=== PATIENT | female | born 1980 | race Caucasian/White ===

== ENCOUNTER 2020-07-19 09:57 | Emergency (ER) | payer SELFPAY ==
[2020-07-19 10:08] VITALS: BP 114/60; PULSE 88; RESP 16; TEMP 36.3; O2SAT 100
--- NOTE | 2020-07-19 10:08 | ED.FEMALEGU ---
HPI - Female Genitourinary General Chief complaint: Urogenital-Female Stated complaint: Pos UTI Time Seen by Provider: 07/19/20 10:17 Source: patient and RN notes reviewed Mode of arrival: ambulatory Limitations: no limitations History of Present Illness HPI Narrative: 40-year-old female presents with concern for 2-day history of dark foul-smelling urine, feeling of not fully emptying her bladder. She denies fever, abdominal pain, back pain, nausea, vomiting. Denies abnormal vaginal discharge, irregular menstrual periods. MD elicited complaint: UTI Related Data Allergies Allergy/AdvReac Type Severity Reaction Status Date / Time No Known Allergies Allergy Verified 12/11/11 10:27 NFA Allergy Uncoded 12/11/11 10:26 Review of Systems Review of Systems: Narrative: CONSTITUTIONAL: Denies malaise, chills, sweats, or fever. CARDIOVASCULAR: Denies chest pain, palpitations, or edema. RESPIRATORY: Denies cough or dyspnea. GASTROINTESTINAL: Denies abdominal pain, nausea, vomiting, diarrhea GENITOURINARY: Denies dysuria or hematuria. Reports dark, foul-smelling urine, feeling of not emptying her bladder MUSCULOSKELETAL: Denies back pain or myalgia. All systems reviewed & are unremarkable except as noted in HPI and below PMFSH Comments At time of signature, agree with nursing past medical, surgical, social and family history. There is no relevant family history pertinent to the presenting complaint Exam Narrative: Exam Narrative: GENERAL: Well-appearing, well-nourished, and in no acute distress. HEAD: Normocephalic. EYES: PERRLA, conjunctivae clear. NECK: Supple. No lymphadenopathy CHEST: Clear to auscultation. No respiratory distress. HEART: Regular rate and rhythm. ABDOMEN: Soft, nontender upon palpation, nondistended, normal active bowel sounds, no palpable or pulsatile masses, no guarding. No CVA tenderness SKIN: Warm, dry, no rash. NEURO: Alert and oriented x3. PSYCH: Normal mood and affect Course Course Emergency Course: Patient is aware of diagnosis, understands and agrees to treatment plan. Anticipatory guidance given. Patient agrees to follow-up as directed and is aware of reasons to seek care at the emergency department. Portions of this record may have been created with voice recognition software Vital Signs Vital signs: Vital Signs Temperature 97.4 F L 07/19/20 10:08 Pulse Rate 88 11/12/20 10:08 Respiratory Rate 16 07/19/20 10:08 Blood Pressure 114/60 07/19/20 10:08 Pulse Oximetry 100 07/19/20 10:08 Temperature 97.4 F L 07/19/20 10:08 Pulse Rate 88 07/19/20 10:08 Respiratory Rate 16 07/19/20 10:08 Blood Pressure 114/60 07/19/20 10:08 Pulse Oximetry 100 07/19/20 10:08 Reviewed. MDM - Female Genitourinary MDM Narrative Medical decision making narrative: Exam findings and UA show no acute concerns or changes; patient is non-toxic appearing and is in no distress. Patient is appropriate for outpatient treatment and follow-up. Lab Data Labs: Urine Glucose Negative Reference Range: Negative Urine Bilirubin Negative Reference Range: Negative Urine Ketone Trace Reference Range: Negative Urine Specific [place] 1.030 Reference Range:1.001-1.035 Urine Blood 3+ Reference Range: Negative * * Urine pH 5.0 Reference Range: 5.0-9.0 Urine Protein 1+ Reference Range: Negative Urine Urobilinogen 0.2
== END 2020-07-19 10:30 | disposition home or self-care (01) ==
PROVIDERS: Emergency Provider Nurse Practitioner; PCP Family Medicine Sports Medicine
DX: N39.0 Urinary tract infection, site not specified (principal)
CPT/HCPCS: 81003; 87077; 87086; 87088; 87186; 99213; G0463

== ENCOUNTER 2021-05-08 10:21 | Emergency (ER) | payer OTHER, SELFPAY ==
--- NOTE | ~2021-05-08 | US_ITS ---
EXAMINATION: US pelvic complete DATE: 05/08/2021 13:05 INDICATION: Left pelvic pain TECHNIQUE: Multiple transabdominal and endovaginal sonographic images of the pelvis were obtained. COMPARISON: None. FINDINGS: The uterus measures 7.6 x 4.2 x 5.3 cm. The endometrial complex measures 4 mm in thickness. Linear e chogenic IUD within the endometrial canal. The right ovary measures 2.8 x 1.1 x 1.3 cm. The left ovar y measures 2.9 x 2.3 x 2.7 cm. 2.9 x 1.7 x 1.4 cm anechoic cyst/follicle in the left ovary. There is an additional 1.9 cm complex cyst with peripheral hypoechoic region without definitive internal flow on color Doppler. There is normal vascular flow in the ovaries. There is no free fluid in the pelvis. IMPRESSION: 1. IUD within the endometrial canal. 2. Indeterminate 1.9 cm complex left ovarian cyst with differential including statistically most like ly hemorrhagic cyst or corpus luteum cyst or less likely neoplasm which could be either benign or mal ignant. Would recommend 6-12 week follow-up pelvic ultrasound. Reviewed, dictated and finalized at location A. IMPRESSION: 1. IUD within the endometrial canal. 2. Indeterminate 1.9 cm complex left ovarian cyst with differential including s tatistically most likely hemorrhagic cyst or corpus luteum cyst or less likely neoplasm which could be either benign or malignant. Would recommend 6-12 week f ollow-up pelvic ultrasound.
[2021-05-08 10:28] VITALS: BP 111/61; PULSE 79; RESP 16; TEMP 37; O2SAT 100
[2021-05-08 10:56] LABS: Basophils Percent Auto 0.5 % (0.2-1.2); Eosinophils Absolute Auto 0.2 K/mm3 (0-0.3); Eosinophils Percent Auto 2.7 % (0-4.4); Hematocrit 38.6 % (37.0-47.0); Hemoglobin 12.7 g/dL (12.0-15.0); Immature Granulocyte Absolute 0.01 K/mm3 (0.00-0.031); Immature Granulocyte Percent A 0.2 % (0-0.5); Lymphocytes Absolute Auto 2.44 K/mm3 (0.9-3.2); Lymphocytes Percent Auto 38.1 % (18.3-44.2); Mean Corpuscular HGB Conc 32.9 g/dl (32-36); Mean Corpuscular Hemoglobin 32.5 pg (26-34); Mean Corpuscular Volume 98.7 fl (80-100); Mean Platelet Volume 12.1 fl (7.4-10.4); Monocytes Absolute Auto 0.7 K/mm3 (0.1-0.6); Monocytes Percent Auto 10.2 % (2.6-8.5); Neutrophils Absolute Auto 3.1 K/mm3 (1.3-6.7); Neutrophils Percent Auto 48.3 % (45.5-73.1); Platelet Count Result 213 k/mm3 (150-375); Red Blood Count 3.91 M/mm3 (4.2-5.4); Red Cell Distribution Width 12.5 % (11.5-14.5); White Blood Count 6.4 K/mm3 (4.5-10.0)
[2021-05-08 11:09] LABS: Add Urine Microscopic? YES; Appearance Urine Clear (Clear); Bacteria Urine Trace /hpf; Bilirubin Urine Negative (Negative); Blood Urine 1+ (Negative); Color Urine Yellow (Yellow); Glucose Urine UA Negative (Negative); Ketones Urine Negative (Negative); Leukocyte Esterase Ur Negative LEU/UL (Negative); Mucus Urine Few /lpf; Nitrate Urine Negative (Negative); Protein Urine 1+ mg/dL (Negative); Specific Grav Ur 1.019 (1.001-1.035); Squamous Epithelial Cell Urine Few /hpf (Few); WBC Urine 0-3 /hpf
[2021-05-08 11:12] LABS: Alanine Aminotransferase 12 U/L (4-35); Albumin Level 4.3 g/dL (3.5-5.1); Alkaline Phosphatase 49 U/L (38-126); Anion Gap 12 mmol/L (8-16); Aspartate Amino Transferase 22 U/L (14-36); Bilirubin,Total 0.4 mg/dL (0.2-1.3); Blood Urea Nitrogen 7 mg/dL (7-17); Calcium 8.8 mg/dL (8.4-10.2); Carbon Dioxide 23 mmol/L (22-30); Chloride 105 mmol/L (98-107); Estimated CRCL calculation 94 ml/min; Estimated Glomerular Filt Rate > 60; Glucose 85 mg/dL (65-110); Lipase 124 U/L (23-300); Potassium 3.7 mmol/L (3.4-5.0); Sodium 140 mmol/L (137-145)
[2021-05-08 11:15] VITALS: BP 101/63; PULSE 55; RESP 18; O2SAT 99
--- NOTE | 2021-05-08 12:44 | ED.ABDPAIN ---
HPI - Abdominal Pain General Chief Complaint: Abdominal Pain Stated Complaint: LLQ abd pain x 3 days Time Seen by Provider: 05/08/21 12:27 Source: patient and RN notes reviewed Mode of arrival: ambulatory Limitations: no limitations History of Present Illness HPI narrative: This is a 41 year old female who presents for evaluation of left lower abdominal pain. She states she had pain last week but it resolved after 1 day. Her pain returned 3 days ago and it has remained daily. She also reports pain is worsening and it is radiating to her lower back . She does not know of any exacerbating factors. She has been taking ibuprofen and Tylenol without relief of her pain. She denies associated nausea, vomiting, fever, urinary symptoms, diarrhea or constipation. She rates pain 8/10 currently. Related Data Allergies Allergy/AdvReac Type Severity Reaction Status Date / Time No Known Allergies Allergy Verified 12/11/11 10:27 NFA Allergy Uncoded 12/11/11 10:26 Review of Systems Review of Systems: All systems reviewed & are unremarkable except as noted in HPI and below PMFSH Past Medical History Medical History (Updated 05/08/21 @ 13:40 by Alejandra Jones MD) Patient denies medical problems Surgical History Surgical History (Updated 05/08/21 @ 12:56 by Alejandra Jones MD) H/O laparoscopy Social History Social History (Updated 05/08/21 @ 12:56 by Alejandra Jones MD) Smoking status: Never smoker Alcohol intake: never Substance use: never Exam Const: General: no acute distress and alert Nutritional Appearance: thin Orientation/consciousness: patient oriented x3 Eyes: EOM: EOMs intact bilaterally Resp: Effort & Inspection: normal respiratory effort and no retractions Auscultation: clear to auscultation bilaterally Cardio: Rate: regular rate Rhythm: regular rhythm Heart sounds: no murmurs GI: GI Palp: Yes Soft to palpation, Yes Tenderness to palpation present (GI) (LLQ), No Guarding due to palpation present (GI) and No Rigid due to palpation Auscultation: normal bowel sounds Neuro: General: patient oriented x3, moves all extremities and CN's II-XI intact bilaterally Psych: Mental Status: mental status grossly normal Affect: normal affect Course Reevaluation(s) Reevaluation #1: I Discussed with patient that US shows ovarian cyst as cause of her pain and she will need to follow up with Dr Jesús Seals. She is in no acute distress or pain. Date: 05/08/21 Time: 13:39 Consultations Consultation #1: I Discussed US with DR. Seals who is patient's OBGYN about her US. She agrees I can prescribe some tramadol but nothing stronger. She will follow up with patient. Date: 05/08/21 Time: 13:38 Vital Signs Vital signs: Vital Signs Temperature 98.6 F 05/08/21 10:28 Pulse Rate 79 05/08/21 10:28 Respiratory Rate 16 05/08/21 10:28 Blood Pressure 111/61 05/08/21 10:28 Pulse Oximetry 100 05/08/21 10:28 Temperature 98.6 F 05/08/21 10:28 Pulse Rate 50 L 05/08/21 13:52 Respiratory Rate 18 05/08/21 13:52 Blood Pressure 98/72 L 05/08/21 13:52 Pulse Oximetry 100 05/08/21 13:52 MDM - Abdominal Pain Lab Data Attestation: I reviewed the patient's lab results. Result diagrams: 05/08/21 10:37 05/08/21 10:37 Labs: Lab Results 05/08/21 05/08/21 05/08/21 Range/Units 10:37 10:37 10:37 WBC 6.4 (4.5-10.0) K/mm3 RBC 3.91 L (4.2-5.4) M/mm3 Hgb 12.7 (12.0-15.0) g/dL Hct 38.6 (37.0-47.0) % MCV 98.7 (80-100) fl MCH 32.5 (26-34) pg MCHC 32.9 (32-36) g/dl RDW 12.5 (11.5-14.5) % Plt Count 213 (150-375) k/mm3 MPV 12.1 H (7.4-10.4) fl Immature Gran % (Auto) 0.2 (0-0.5) % Neut % (Auto) 48.3 (45.5-73.1) % Lymph % (Auto) 38.1 (18.3-44.2) % Payne % (Auto) 10.2 H (2.6-8.5) % Eos % (Auto) 2.7 (0-4.4) % Baso % (Auto) 0.5 (0.2-1.2) % Lymph # (Auto) 2.44 (0.9-3.2)
[2021-05-08] MEDS: KETOROLAC 30 MG/ML VIAL (*BKC) IV PUSH (13:04)
[2021-05-08 13:52] VITALS: BP 98/72; PULSE 50; RESP 18; O2SAT 100
== END 2021-05-08 13:53 | disposition home or self-care (01) ==
PROVIDERS: Emergency Medicine; Emergency Provider General Practice; PCP Family Medicine Sports Medicine
DX: N83.292 Other ovarian cyst, left side (principal)
CPT/HCPCS: 36415; 76856; 80053; 81001; 81025; 83690; 85025; 96374; 99284; J1885

== ENCOUNTER 2021-12-23 17:18 | Emergency (ER) | payer OTHER, SELFPAY ==
--- NOTE | ~2021-12-23 | XR_ITS ---
EXAM: XR_CERV2-3V_CR HISTORY: FALL,PAIN MAINLY LT SIDE OF NECK COMPARISON: None available FINDINGS: Craniocervical association and atlantoaxial joint are normal. No prevertebral soft tissue swelling. Reversal of the normal cervical lordosis. Moderate disc space narrowing at C5-6. Normal fac ets and posterior elements. IMPRESSION: No acute fracture or traumatic malalignment detected in the cervical spine. Reviewed, dictated and finalized at location K.
--- NOTE | ~2021-12-23 | XR_ITS ---
EXAM: XR lumbar spine 2-3V HISTORY: FALL,PAIN ACROSS LOW BACK COMPARISON: None available FINDINGS: 5 nonrib-bearing lumbar-type vertebral bodies. Pedicles intact. Normal vertebral body alig nment. Vertebral body heights preserved. Disc spaces maintained. Normal facets and posterior elements . IUD. IMPRESSION: No acute fracture or traumatic malalignment detected in the lumbar spine. Reviewed, dictated and finalized at location K.
[2021-12-23 17:38] VITALS: BP 95/67; PULSE 63; RESP 18; TEMP 36.9; O2SAT 100
[2021-12-23 19:02] VITALS: BP 102/80; PULSE 62; RESP 18; TEMP 36.4; O2SAT 99
--- NOTE | 2021-12-23 19:07 | ED.GENADULT ---
HPI - General Adult General Chief complaint: Unspecified Stated complaint: Neck/Back Pain Time Seen by Provider: 12/23/21 18:48 History of Present Illness HPI narrative: 41-year-old female presents to the emergency room with complaints of neck and lower back pain. Patient states that earlier today at work, she was trying to catch a falling tray of mail. She states she attempted to catch the mail she twisted her back and causing pain. Injury occurred around 9:00 this morning. Patient was able to work her entire shift following the injury. Related Data Allergies Allergy/AdvReac Type Severity Reaction Status Date / Time No Known Allergies Allergy Verified 12/23/21 17:41 Review of Systems Review of Systems: CONSTITUTIONAL: Denies fever, chills, or sweats. EYES: Denies visual changes, redness, or discharge. ENT: Denies rhinorrhea, congestion, sore throat, or otalgia. CARDIOVASCULAR: Denies chest pain, palpitations, or edema. RESPIRATORY: Denies cough or dyspnea. GASTROINTESTINAL: Denies abdominal pain, nausea, vomiting, or diarrhea. GENITOURINARY: Denies dysuria or hematuria. SKIN: Denies rash or itching. MUSCULOSKELETAL: Reports neck and back pain NEUROLOGIC: Denies headache, numbness, dizziness, or weakness. PSYCHIATRIC: Denies anxiety or depression. PMFSH Past Medical History Medical History Patient denies medical problems Surgical History Surgical History H/O laparoscopy Social History Social History Smoking status: Never smoker Alcohol intake: never Substance use: never Exam Narrative: GENERAL: Well-appearing, well-nourished, and in no acute distress. HEAD: Normocephalic, atraumatic. EYES: PERRLA and EOMI. CHEST: Clear to auscultation. No respiratory distress. No wheezes rales or rhonchi HEART: Regular rate and rhythm. No murmur heard. Normal peripheral pulses. ABDOMEN: Soft, nontender, nondistended, normal active bowel sounds. EXTREMITIES: Normal range of motion. No edema. BACK: Cervical spine: Tenderness to the left trapezius muscle, full range of motion rotation and bend. No midline tenderness, no bony abnormality, no step-offs. Lumbar spine: Tenderness to lumbar fascia, range of motion with rotation and bend. No midline tenderness no bony abnormality, no step-offs. Neurovascular is intact distally SKIN: Warm, dry, no rash. NEURO: No focal deficits. Alert and oriented x3. PSYCH: Normal mood and affect. Course Course Emergency Course: 1929: Patient verbalized frustration that she was not evaluated thoroughly by the provider. Patient states that because she heard a pop in her neck, she must of fractured spinal bone. Examination demonstrates that she had muscle spasms in her left trapezius muscle. Images were then ordered, of her neck and lower spine. X-ray showed no acute bony abnormality, or no muscle spasms. Was unable to discuss findings with patient because she left without being told of the results. Vital Signs Vital signs: Vital Signs Temperature 36.9 C 12/23/21 17:38 Pulse Rate 63 12/23/21 17:38 Respiratory Rate 18 12/23/21 17:38 Blood Pressure 95/67 L 12/23/21 17:38 Pulse Oximetry 100 12/23/21 17:38 Temperature 36.5 C 12/23/21 20:45 Pulse Rate 59 L 12/23/21 20:45 Respiratory Rate 16 12/23/21 20:45 Blood Pressure 117/73 12/23/21 20:45 Pulse Oximetry 99 12/23/21 20:45 Medical Decision Making Vital Signs Vital Signs: Vital Signs Temperature 36.9 C 12/23/21 17:38 Pulse Rate 63 12/23/21 17:38 Respiratory Rate 18 12/23/21 17:38 Blood Pressure 95/67 L 12/23/21 17:38 Pulse Oximetry 100 12/23/21 17:38 Temperature 36.5 C 12/23/21 20:45 Pulse Rate 59 L 12/23/21 20:45 Respiratory Rate 16 12/23/21 20:45 Blood Pressure 117/73 12/23/21 20:45 Pulse Oximetry
--- NOTE | 2021-12-23 19:57 | PC.NURSE ---
Went in with discharge paperwork. Pt unhappy, states how does he know its a muscle . Spoke with MARISSA García. Ricky to order xrays at patient request. No discharge at this time. Updated patient.
[2021-12-23 20:45] VITALS: BP 117/73; PULSE 59; RESP 16; TEMP 36.5; O2SAT 99
== END 2021-12-23 20:45 | disposition left against medical advice (07) ==
LOC: ANHED 19:37
PROVIDERS: Emergency Provider Nurse Practitioner Family; PCP Family Medicine Sports Medicine
DX: S16.1XXA Strain of muscle, fascia and tendon at neck level, initial encounter (principal); S39.012A Strain of muscle, fascia and tendon of lower back, initial encounter; X50.9XXA Other and unspecified overexertion or strenuous movements or postures, initial encounter
CPT/HCPCS: 72040; 72100; 99284

== ENCOUNTER 2022-12-01 08:22 | Emergency (ER) | payer OTHER, MEDICAID, SELFPAY ==
--- NOTE | 2022-12-01 08:23 | ED.URI ---
HPI - URI/Sore Throat General Chief Complaint: Upper Respiratory Infection Stated Complaint: sore throat Time Seen by Provider: 12/01/22 08:23 Source: patient and RN notes reviewed History of Present Illness HPI Narrative: Patient is a 42-year-old female who presents to urgent care with complaints of sore throat, intermittent headaches and right ear pain. Patient states it started 1 week ago and she has been taking ibuprofen allergy medication without relief. Denies any fever, nausea or vomiting. Denies any ill contacts. No other acute complaints. No acute distress noted. Patient aware of the plan of care. Some parts of this dictation were generated by voice recognition software and may contain typographical and/or grammatical inaccuracies. Related Data Home Medications Medication Instructions Recorded Confirmed gabapentin 100 mg capsule 100 mg PO TID 12/01/22 12/01/22 sertraline 100 mg tablet 150 mg PO DAILY 12/01/22 12/01/22 Allergies Allergy/AdvReac Type Severity Reaction Status Date / Time No Known Allergies Allergy Verified 12/23/21 17:41 Review of Systems Review of Systems: CONSTITUTIONAL: Denies fever, chills, or sweats. EYES: Denies visual changes, redness, or discharge. ENT: Denies rhinorrhea, congestion. Reports of sore throat right otalgia CARDIOVASCULAR: Denies chest pain, palpitations, or edema. RESPIRATORY: Denies cough or dyspnea. GASTROINTESTINAL: Denies abdominal pain, nausea, vomiting, or diarrhea. GENITOURINARY: Denies dysuria or hematuria. SKIN: Denies rash or itching. MUSCULOSKELETAL: Denies back pain, joint pain, or myalgia. NEUROLOGIC: Reports of headaches All other systems reviewed are negative, except as documented in HPI. [facility] Past Medical History Medical History Patient denies medical problems Surgical History Surgical History H/O laparoscopy Social History Social History Smoking status: Never smoker Alcohol intake: never Substance use: never Comments At the time of my signature, I reviewed and agree with the nursing past medical, surgical, social, and family history. There is no relevant family history pertinent to the patient complaint. Exam Narrative: GENERAL: This is a well-nourished, well-developed patient, in no apparent distress. HEAD: normocephalic, atraumatic. EYES: PERRL. Sclera clear/white. Vision is grossly intact. EARS: External ears normal, auditory canals clear and without drainage, TMs normal without perforation. Hearing grossly intact. NOSE: External nose normal with no obvious nasal discharge, nares without redness, no rhinorrhea. THROAT: Mucous membranes moist, posterior pharynx clear. Mild postnasal drainage NECK: Neck supple, non-tender without lymphadenopathy RESPIRATORY: Clear to auscultation. Breath sounds equal bilaterally. No wheezes, rales, or rhonchi. SKIN: warm, intact with no suspicious lesions or rash, good texture and turgor. NEURO: awake, alert, and oriented to person, place and time. There were no obvious focal neurologic abnormalities. EXTREMITIES: No clubbing, cyanosis, or edema. Course Course Level of Care: Express Care Visit Vital Signs Vital signs: Vital Signs Temperature 98.5 F 12/01/22 08:43 Pulse Rate 88 12/01/22 08:43 Respiratory Rate 16 12/01/22 08:43 Blood Pressure 104/73 12/01/22 08:43 Pulse Oximetry 100 12/01/22 08:43 Temperature 98.5 F 12/01/22 08:43 Pulse Rate 88 12/01/22 08:43 Respiratory Rate 16 12/01/22 08:43 Blood Pressure 104/73 12/01/22 08:43 Pulse Oximetry 100 12/01/22 08:43 Reviewed MDM - URI/Sore Throat MDM Narrative Medical decision making narrative: Reviewed lab results with the patient. She is aware that strep swab was negative. Educated patient on culture we will call within 72 hours if herminio
[2022-12-01 08:43] VITALS: BP 104/73; PULSE 88; RESP 16; TEMP 36.9; O2SAT 100
== END 2022-12-01 09:07 | disposition home or self-care (01) ==
PROVIDERS: Emergency Provider Nurse Practitioner Family; PCP Family Medicine Sports Medicine
DX: H92.01 Otalgia, right ear (principal)
CPT/HCPCS: 87081; 87880; 99213; G0463

== ENCOUNTER 2023-10-06 08:03 | Emergency (ER) | payer BC, SELFPAY ==
[2023-10-06] VITALS (7 sets, daily range): BP systolic 105–148; BP diastolic 61–85; PULSE 50–112; RESP 13–16; O2SAT 99–100
--- NOTE | ~2023-10-06 | CT_ITS ---
EXAMINATION: CT abdomen pelvis w con DATE: 10/06/2023 11:07 INDICATION: Right upper quadrant abdominal pain. TECHNIQUE: Computed tomography (CT) of the abdomen and pelvis was performed with 100 mL Omnipaque 350 intravenous contrast. Automated exposure control and iterative reconstruction technique were employe d. The dose-length product was 340.12 mGy-cm. COMPARISON: CT abdomen 06/11/2004 FINDINGS: The visualized portions of the lung bases demonstrate mild atelectasis. No pleural effusion . The heart size is normal. No pericardial effusion. There is mild pectus excavatum. There are cysts in the liver measuring up to 5 mm. The gallbladder, spleen, pancreas, adrenal glands, and right kidne y are normal. There are cysts in left kidney measuring up to 4 mm. There is an intrauterine device in expected position. The appendix is normal. There are no pathologically enlarged lymph nodes. There i s no free intraperitoneal fluid. There is mild lumbar spondylosis. IMPRESSION: 1. No etiology for the patient's symptoms. Reviewed, dictated and finalized at location A. L SAMPLER
--- NOTE | 2023-10-06 08:25 | ED.ABDPAIN ---
HPI - Abdominal Pain General Chief Complaint: Abdominal Pain Stated Complaint: difficulty swallowing/epigastric burning Time Seen by Provider: 10/06/23 08:19 History of Present Illness HPI narrative: 43-year-old female presenting to the emergency department for evaluation of epigastric pain and epigastric burning. Patient states over the course of the last 2 weeks she has had some difficulty with swallowing but does continue to swallow food and secretions without difficulty. Patient reports that she does has to focus on the swelling. Patient also has some epigastric pain. Patient has been taking Nexium integument. Patient did have a upper endoscopy done in May that showed no acute abnormalities. Patient denies daily alcohol use and denies frequent use of NSAIDs Related Data Home Medications Medication Instructions Recorded Confirmed gabapentin 100 mg capsule 100 mg PO TID 12/01/22 02/12/23 sertraline 100 mg tablet 150 mg PO DAILY 12/01/22 02/12/23 Allergies Allergy/AdvReac Type Severity Reaction Status Date / Time No Known Allergies Allergy Verified 10/06/23 08:35 Review of Systems Review of Systems: All systems reviewed & are unremarkable except as noted in HPI and below PMFSH Past Medical History Medical History Patient denies medical problems Surgical History Surgical History H/O laparoscopy Social History Social History Smoking status: Never smoker Alcohol intake: never Substance use: never Exam Narrative: APPEARANCE: Well appearing, no pain, no distress, well-nourished. HEAD: normocephalic, atraumatic. EYES: PERRLA/EOMI, conjunctivae clear.x. THROAT: Pharynx clear, no exudate. NECK: Supple. No adenopathy, no masses. RESPIRATORY: Airway patent, respirations nonlabored. Clear to auscultation bilaterally, no rales, rhonchi, wheezing. CARDIOVASCULAR: Regular rate and rhythm without murmurs rubs or gallops. ABDOMINAL: Epigastric tenderness to palpation MUSCULOSKELETAL: Moves all extremities. Strength/ROM intact, No edema, No calf tenderness. NEURO: Alert. Cranial nerves II through XII intact. Grossly intact SKIN: Warm, dry. Normal Color Course Course Emergency Course: 43-year-old female presenting to the ED for evaluation epigastric pain. Patient does have history of gastritis. Patient was treated with GI cocktail and Protonix. Patient is afebrile with no leukocytosis and a stable hemoglobin no elevation and the pace that it is AST ALT T bili or alk-phos and patient has no elevation in her lipase. Patient was still having significant burning so CT scan was ordered that showed no acute abnormality. Patient was encouraged to continue have close follow-up with GI. Patient was advised to start taking omeprazole patient was provided Carafate for additional symptom control. Vital Signs Vital signs: Vital Signs Pulse Rate 54 L 10/06/23 08:12 Respiratory Rate 16 10/06/23 08:12 Blood Pressure 148/82 H 10/06/23 08:12 Pulse Oximetry 100 10/06/23 08:12 Oxygen Delivery Room Air 10/06/23 08:12 Pulse Rate 112 H 10/06/23 11:51 Respiratory Rate 14 10/06/23 11:51 Blood Pressure 119/61 10/06/23 11:51 Pulse Oximetry 100 10/06/23 11:51 Oxygen Delivery Room Air 10/06/23 08:33 MDM - Abdominal Pain Differential Diagnosis Differential diagnosis: Likely abdominal pain, acute appendicitis, constipation, diverticulitis, endometriosis, gastroenteritis, pancreatitis and small bowel obstruction Lab Data Attestation: I reviewed the patient's lab results. 10/06/23 08:31 10/06/23 08:32 Labs: Lab Results 10/06/23 10/06/23 10/06/23 Range/Units 08:31 08:32 08:39 WBC 7.1 (4.5-10.0) K/mm3 RBC 4.17 L (4.2-5.4) M/mm3 Hgb 13.3 (12.0-15.0) g/dL Hct 40.3
[2023-10-06 08:38] LABS: Basophils Percent Auto 0.4 % (0.2-1.2); Eosinophils Absolute Auto 0.1 K/mm3 (0-0.3); Eosinophils Percent Auto 0.8 % (0-4.4); Hematocrit 40.3 % (37.0-47.0); Hemoglobin 13.3 g/dL (12.0-15.0); Immature Granulocyte Absolute 0.01 K/mm3 (0.00-0.031); Immature Granulocyte Percent A 0.1 % (0-0.5); Lymphocytes Absolute Auto 2.06 K/mm3 (0.9-3.2); Lymphocytes Percent Auto 28.9 % (18.3-44.2); Mean Corpuscular Hemoglobin 31.9 pg (26-34); Mean Corpuscular Volume 96.6 fl (80-100); Mean Platelet Volume 11.6 fl (7.4-10.4); Monocytes Absolute Auto 0.7 K/mm3 (0.1-0.6); Monocytes Percent Auto 10.2 % (2.6-8.5); Neutrophils Absolute Auto 4.2 K/mm3 (1.3-6.7); Neutrophils Percent Auto 59.6 % (45.5-73.1); Platelet Count Result 218 k/mm3 (150-375); Red Blood Count 4.17 M/mm3 (4.2-5.4); Red Cell Distribution Width 12.1 % (11.5-14.5); White Blood Count 7.1 K/mm3 (4.5-10.0)
[2023-10-06 08:48] LABS: Alanine Aminotransferase 16 U/L (6-35); Albumin Level 4.6 g/dL (3.5-5.1); Alkaline Phosphatase 65 U/L (38-126); Anion Gap 7 mmol/L (8-16); Aspartate Amino Transferase 30 U/L (14-36); Bilirubin,Total 0.7 mg/dL (0.2-1.3); Blood Urea Nitrogen 10 mg/dL (7-17); Calcium 9.9 mg/dL (8.4-10.2); Carbon Dioxide 26 mmol/L (22-30); Chloride 106 mmol/L (98-107); Estimated CRCL calculation 86 ml/min; Estimated Glomerular Filt Rate > 60; Glucose 106 mg/dL (65-110); Lipase 58 U/L (23-300); Potassium 4.1 mmol/L (3.4-5.0); Sodium 139 mmol/L (137-145)
[2023-10-06 08:58] LABS: Appearance Urine Clear (Clear); Bacteria Urine None Seen /hpf; Bilirubin Urine Negative (Negative); Blood Urine Trace (Negative); Color Urine Yellow (Yellow); Glucose Urine UA Negative (Negative); Ketones Urine Negative (Negative); Leukocyte Esterase Ur Negative LEU/UL (Negative); Nitrate Urine Negative (Negative); Non Pathogenic Casts 0-2; Protein Urine Negative (Negative); RBC Urine 0-2 /hpf (0-2); Specific Grav Ur 1.012 (1.001-1.035); Squamous Epithelial Cell Urine None seen /hpf (Few); Urobilinogen Urine 0.2 mg/dL (<2.0); WBC Urine 0-5 /hpf; pH Urine 5.5 (5.0-9.0)
[2023-10-06] MEDS: BELLADONNA ALK/PHENOB ELIX 10 ML, MAG HYDROX/ALUMINUM HYD/SIMETH 30 ML, LIDOCAINE HCL 2... PO (09:02)
[2023-10-06 09:03] LABS: Add Urine Microscopic? YES
[2023-10-06] MEDS: SODIUM CHLORIDE 0.9% IV 1,000 ML 999 ML IV CONT (09:06)
[2023-10-06] MEDS: PANTOPRAZOLE SODIUM IV 40 MG VIAL IV PUSH (09:06)
[2023-10-06] MEDS: HYDROmorphone HCL INJ (*CRX) 1 MG/ML SYR 0.5 MG IV PUSH (10:15)
== END 2023-10-06 11:52 | disposition home or self-care (01) ==
PROVIDERS: Emergency Provider Emergency Medicine; PCP Family Medicine Sports Medicine
DX: R10.13 Epigastric pain (principal)
CPT/HCPCS: 36415; 74177; 80053; 81001; 81025; 83690; 85025; 96361; 96374; 96375; 99284; A9270; C9113; J1170; J7030; Q9967

== ENCOUNTER → 2023-10-09 10:04 | Outpatient (CLI) | payer BC, SELFPAY ==
--- NOTE | ~2023-10-09 | MM_ITS ---
EXAMINATION: MM screening brent BI w joseph HISTORY: Screening TECHNIQUE: Craniocaudal and mediolateral oblique 3-D tomosynthesis images were obtained and synthetic 2-D images were generated. CAD analysis was submitted and interpreted. COMPARISON: No prior mammogram is available for comparison at this institution. BREAST PARENCHYMAL COMPOSITION: Dense: The breasts are extremely dense, which lowers the sensitivity of mammography. FINDINGS: There are scattered bilateral nodular asymmetries which are obscured by fibroglandular cont ent. No prior examinations are available for direct comparison. IMPRESSION: 1. Scattered bilateral nodular asymmetries. 2. Additional mammographic views and possible breast ultrasound are recommended. BI-RADS Category 0: Incomplete: Needs additional imaging evaluation. Reviewed, dictated and finalized at location A. CE DEPARTMENT SECRETARY IMPRESSION: 1. Scattered bilateral nodular asymmetries. 2. Additional mammographic views and possible breast ultrasound are recommended . BI-RADS Category 0: Incomplete: Needs additional imaging evaluation.
== END ==
PROVIDERS: PCP Nurse Practitioner; Visit Provider Nurse Practitioner
DX: Z12.31 Encounter for screening mammogram for malignant neoplasm of breast (principal); R92.8 Other abnormal and inconclusive findings on diagnostic imaging of breast
CPT/HCPCS: 77063; 77067

== ENCOUNTER 2023-12-24 09:13 | Outpatient (CLI) | payer BC, SELFPAY ==
--- NOTE | ~2023-12-24 | MMUS_ITS ---
EXAMINATION: MM diagnostic brent BI w joseph, US breast BI complete HISTORY: Follow-up bilateral breast asymmetries. TECHNIQUE: Additional 3-D tomosynthesis images of the breasts were performed and synthetic 2-D images were generated. CAD analysis was submitted and interpreted. High resolution bilateral complete breas t ultrasound was performed. COMPARISON: 10/09/2023 BREAST PARENCHYMAL COMPOSITION: Dense: The breasts are heterogeneously dense, which may obscure small masses FINDINGS: MAMMOGRAPHIC FINDINGS: There are no suspicious masses, calcifications or architectural distortion in the right breast to sug gest malignancy. ULTRASOUND: Complete bilateral US of all 4 quadrants of the breasts and retroareolar region was reviewed. Right breast: At 1:00, 3 cm from the nipple there is a slightly lobulated hypoechoic parallel oriente d mass without posterior features or internal vascularity measuring 11 x 11 x 4 mm. There are multipl e cysts of the right breast which are benign. Left breast: There are multiple simple and complicated cysts in the left breast. At 7:00, 3 cm from t he nipple there is an oval hypoechoic mass measuring 5 mm, likely benign. At 10:00, 5 cm from the nip ple there is an oval parallel oriented hypoechoic mass measuring 6 mm, likely benign. IMPRESSION: 1. Right breast mass at 1:00, 3 cm from the nipple. Ultrasound-guided right breast biopsy recommended . 2. Left breast masses which are likely benign by ultrasound. No definite mammographic correlate. Six- month follow-up Limited left breast ultrasound recommended. BI-RADS CATEGORY 4-SUSPICIOUS ABNORMALITY Reviewed, dictated and finalized at location B. IMPRESSION: 1. Right breast mass at 1:00, 3 cm from the nipple. Ultrasound-guided right fabienne ast biopsy recommended. 2. Left breast masses which are likely benign by ultrasound. No definite mammog raphic correlate. Six-month follow-up Limited left breast ultrasound recommende d. BI-RADS CATEGORY 4-SUSPICIOUS ABNORMALITY
== END 2023-12-24 09:14 ==
LOC: MICIMG 09:14
PROVIDERS: PCP Obstetrics & Gynecology Gynecology; Visit Provider Obstetrics & Gynecology Gynecology
DX: R92.8 Other abnormal and inconclusive findings on diagnostic imaging of breast (principal)
CPT/HCPCS: 76641; 77062; 77066; G0279